=== PATIENT | male | born 1985 | race Caucasian/White ===

== ENCOUNTER 2018-11-26 12:42 | Emergency (ER) | payer SELFPAY ==
[~2018-11-26] VITALS: Ht 170.2 cm; Wt 81.6 kg
--- NOTE | 2018-11-26 12:42 | NUR ---
Patient BIBA [facility]S accompanied by Tomas ROTHMAN, transferred to bed 10. Dr. Chaudhari, RN and RT evaluating patient at bedside.
--- NOTE | 2018-11-26 12:43 | NUR ---
DR. LILLY AT BEDSIDE INTUBATING PATIENT.
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
--- NOTE | 2018-11-26 12:44 | NUR ---
PATIENT GIVEN 1 MG ROCURONIUM AND 100MG SUCCINYLCHOLINE IVP L AC 20. LINE FLUSHED WELL, NADR.
--- NOTE | 2018-11-26 12:45 | NUR ---
DR. LILLY SUCCESSFULLY INTUBATED PATIENT. 7.5 ET TUBE 25 AT THE LIP.
[2018-11-26 12:47] VITALS: BP 114/64
--- NOTE | 2018-11-26 12:48 | NUR ---
Patient transferred ACLS to [facility] for higher level of care.
--- NOTE | 2018-11-26 12:48 | NUR ---
Patient to be transferred to [facility]. Is being transferred due to CONTINUATION OF CARE. Receiving facility has accepting physician and available space. [facility] and [facility] will transport now.
[2018-11-26] MEDS ORDERED: SUCCINYLCHOLINE CHLORIDE 200 MG/10 ML VIAL IVP ONE (13:38)
[2018-11-26] MEDS ORDERED: ROCURONIUM 50 MG/5 ML VIAL IV ONE (13:38)
== END 2018-11-26 12:48 | disposition short-term general hospital (02) ==
LOC: MED 12:42
DX: S01.00XA Unspecified open wound of scalp, initial encounter (principal); R04.0 Epistaxis; Y93.89 Activity, other specified; Y92.89 Other specified places as the place of occurrence of the external cause; Y99.8 Other external cause status
CPT/HCPCS: 31500; 99285; J0330; J3490